=== PATIENT | female | born 1940 | race Caucasian/White ===

== ENCOUNTER 2020-09-16 08:15 | Outpatient (REF) | payer MEDICARE, OTHER, SELFPAY ==
--- NOTE | 2020-09-16 11:52 | MHC.AU.AHA ---
Adult Audiological Evaluation Date of Visit: 09/16/20 Reason for Appointment: Audiological evaluation due to concerns for decreased hearing. Ms. Greene has a known bilateral sensorineural hearing loss and uses hearing aids bilaterally. She denies any significant changes to her medical history but notes that her cognitive abilities are declining. [place] [facility] [place] mild sloping to moderately severe sensorineural hearing loss bilaterally. 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 Removed w/curette and alligator forceps. Left Ear: Unremarkable Tympanometry: Tympanometry performed due to: To determine if cerumen blockage is fully occluding canal(s) Right Ear: Normal Middle Ear System (Type A) Left Ear: Non-compliant Middle Ear System (Type B) Hearing Evaluation: Transducer(s) Used: Insert Earphones, Bone Conduction Method: Conventional Audiometry Stimuli Used: Pure Tones Right Ear: Description of Hearing: Mild sloping to moderately severe sensorineural hearing loss from 250-8000 Hz. Left Ear: Description of Hearing: Mild sloping to moderately severe sensorineural hearing loss from 250-8000 Hz. Thresholds are 10-15 dBHL worse than the right ear at 250-500 Hz. Speech Recognition Threshold (SRT): Method Used: Monitored Live Voice Stimuli Used: Spondee Words Right Ear: 35 dBHL Left Ear: 40 dBHL Word Discrimination: Method: Recorded Lists Word Lists Used: NU-6 Right Ear: 92% at 75 dBHL Left Ear: 96% at 80 dBHL Comparison: Compared to the most recent evaluation: Hearing is stable. Recommendations: Audiological re-evaluation in one year. Hearing aid maintenance performed today. Diagnosis: Primary Diagnosis: H90.3 Bilateral Sensorineural Hearing Loss Secondary Diagnosis: H61.21 Impacted Cerumen, Right Ear Services Performed: Comprehensive Audiological Evaluation (CPT 13250) Tympanometry (CPT 93666) Signature: Provider: Kareem Olguin, CCC-A
== END 2020-09-16 08:16 | disposition home or self-care (01) ==
LOC: HO.SH 08:15
PROVIDERS: Visit Provider Family Medicine
DX: H90.3 Sensorineural hearing loss, bilateral (principal); H61.21 Impacted cerumen, right ear
CPT/HCPCS: 92557; 92567

== ENCOUNTER 2020-09-16 09:17 | Outpatient (REF) | payer SELFPAY | END 2020-09-16 09:18 | disposition home or self-care (01) | LOC: HO.HAP 09:17 | PROVIDERS: Visit Provider Family Medicine | DX: Z46.1 Encounter for fitting and adjustment of hearing aid (principal); H90.3 Sensorineural hearing loss, bilateral | CPT/HCPCS: 92700 ==

== ENCOUNTER 2022-01-27 08:59 | Outpatient (REF) | payer MEDICARE, OTHER, SELFPAY ==
--- NOTE | 2022-02-09 14:25 | MHC.AU.AHA ---
Adult Audiological Evaluation Date of Visit: 01/27/22 Torpedo Shooter Used: Not Applicable Reason for Appointment: Audiologic re-evaluation to determine possible change in hearing ability. Cindy has a history of progressive bilateral hearing loss, left ear middle ear dysfunction, and wears binaural hearing aids. Previous Hearing Test Results: 09/16/2020 [facility] Right Ear - Mild sloping to moderately-severe sensorineural hearing loss Left Ear - Moderate to moderately-severe sensorineural hearing loss Medical History: Medical History: Thyroid Disease, Memory/Cognitive decline Medication List: List is not available for review today. 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 Left Ear: Unremarkable Tympanometry: Tympanometry performed due to: To assess integrity of the middle ear system Right Ear: Normal Middle Ear System (Type A) Left Ear: Non-compliant Middle Ear System (Type B) Hearing Evaluation: Transducer(s) Used: Insert Earphones Method: Conventional Audiometry Stimuli Used: Pure Tones Right Ear: Description of Hearing: Mild sloping to moderately-severe sensorineural hearing loss Left Ear: Description of Hearing: Moderate to moderately-severe sensorineural hearing loss Speech Recognition Threshold (SRT): Method Used: Monitored Live Voice Stimuli Used: Spondee Words Right Ear: 35 dB HL Left Ear: 40 dB HL Word Discrimination: Method: Recorded Lists Word Lists Used: NU-6 Right Ear: 100% at 75 dB HL Left Ear: 100% at 80 dB HL Comparison: Compared to the most recent evaluation: Thresholds have decreased bilaterally. Recommendations: Hearing aid maintenance performed today. Unable to reprogram hearing aids to today's test results due to equipment problems. Scheduled an appointment in February to reprogram aids. Audiological re-evaluation in one year. Diagnosis: Primary Diagnosis: H90.3 Bilateral Sensorineural Hearing Loss Services Performed: Pure Tone- Air (CPT 97332) Speech Audiometry Threshold, with Speech Recognition (CPT 97432) Tympanometry (CPT 89696) Signature: Provider: Kareem Becker, CCC-A
== END 2022-01-27 09:00 | disposition home or self-care (01) ==
LOC: HO.SH 08:59
PROVIDERS: Visit Provider Family Medicine
DX: Z01.118 Encounter for examination of ears and hearing with other abnormal findings (principal); H90.3 Sensorineural hearing loss, bilateral
CPT/HCPCS: 92552; 92556; 92567

== ENCOUNTER 2022-01-27 10:10 | Outpatient (REF) | payer SELFPAY | END 2022-01-27 10:11 | disposition home or self-care (01) | LOC: HO.HAP 10:10 | PROVIDERS: Visit Provider Internal Medicine Rheumatology | DX: Z46.1 Encounter for fitting and adjustment of hearing aid (principal); H90.3 Sensorineural hearing loss, bilateral; H69.91 Unspecified Eustachian tube disorder, right ear | CPT/HCPCS: 92700 ==

== ENCOUNTER 2022-03-07 08:53 | Outpatient (REF) | payer SELFPAY | END 2022-03-07 08:54 | disposition home or self-care (01) | LOC: HO.HAP 08:53 | PROVIDERS: Visit Provider Anesthesiology | DX: Z13.89 Encounter for screening for other disorder (principal) ==

== ENCOUNTER 2022-07-26 12:02 | Outpatient (REF) | payer SELFPAY ==
--- NOTE | 2022-07-26 13:22 | MHC.AU.HA3 ---
Hearing Instrument Follow-Up- Binaural Date of Visit: 07/26/22 Right Ear: Make, Model, Color, Serial Number: [employer] [place] Pro slim tube BTE SN: [id number] Color: Silver Buckle Inspector Repair Warranty: 04/12/2017 Buckle Inspector Loss and Damage Warranty: 04/12/2017 Battery Size: 312 Geophysical Engineer/Slim Tube: #2 slim tube Earmold/Dome/CShell/SlimTip:[employer] Skeleton slim tube mold Dispensed By: [facility] Date of Fittin03/20/2014 Left Ear: Make, Model, Color, Serial Number: [employer] Deb Pro slim tube BTE SN: [id number] Color: Silver Buckle Inspector Repair Warranty: 04/12/2017 Buckle Inspector Loss and Damage Warranty: 04/12/2017 Battery Size: 312 Geophysical Engineer/Slim Tube: #2 slim tube Earmold/Dome/CShell/SlimTip: 6 mm open dome Dispensed By: [facility] Date of Fittin03/20/2014 Follow-Up Summary: Left hearing aid dropped off missing entire slim tube. Rust noted in battery door. Cleaned hearing aid, battery door, and contacts. Vacuumed microphones and ran hearing aid through dehumidifier. Replaced tubing and dome. A listening check demonstrated hearing aid is in good working order. Recommendations: Hearing instrument maintenance in 6 months, or sooner if needed. Diagnosis Code(s): Primary Diagnosis: H90.3 Bilateral Sensorineural Hearing Loss Signature: Provider: Milagro Salter, [facility]
== END 2022-07-26 12:03 | disposition home or self-care (01) ==
LOC: HO.HAP 12:02
PROVIDERS: Visit Provider Internal Medicine Rheumatology
DX: Z13.89 Encounter for screening for other disorder (principal)

== ENCOUNTER 2022-07-27 11:17 | Outpatient (REF) | payer SELFPAY | END 2022-07-27 11:18 | disposition home or self-care (01) | LOC: HO.HAP 11:17 | PROVIDERS: Visit Provider Internal Medicine Rheumatology | DX: Z46.1 Encounter for fitting and adjustment of hearing aid (principal); H90.3 Sensorineural hearing loss, bilateral; H69.91 Unspecified Eustachian tube disorder, right ear | CPT/HCPCS: 92592 ==

== ENCOUNTER 2023-05-01 14:57 | Outpatient (REF) | payer SELFPAY | END 2023-05-01 14:58 | disposition home or self-care (01) | LOC: HO.HAP 14:57 | PROVIDERS: Visit Provider Internal Medicine Rheumatology | DX: Z13.89 Encounter for screening for other disorder (principal) ==

== ENCOUNTER 2023-05-03 10:31 | Outpatient (REF) | payer SELFPAY | END 2023-05-03 10:32 | disposition home or self-care (01) | LOC: HO.HAP 10:31 | PROVIDERS: Visit Provider Internal Medicine Rheumatology | DX: Z46.1 Encounter for fitting and adjustment of hearing aid (principal); H90.3 Sensorineural hearing loss, bilateral | CPT/HCPCS: 92593 ==

== ENCOUNTER 2023-06-22 08:22 | Outpatient (REF) | payer MEDICARE, OTHER, SELFPAY | END 2023-06-22 08:23 | disposition home or self-care (01) | LOC: HO.SH 08:22 | PROVIDERS: Visit Provider Family Medicine | DX: Z01.118 Encounter for examination of ears and hearing with other abnormal findings (principal); H90.3 Sensorineural hearing loss, bilateral | CPT/HCPCS: 92557; 92567 ==

== ENCOUNTER 2024-07-09 08:55 | Outpatient (REF) | payer MEDICARE, OTHER, SELFPAY | END 2024-07-09 08:56 | disposition home or self-care (01) | LOC: HO.SH 08:55 | PROVIDERS: Visit Provider Family Medicine | DX: Z01.118 Encounter for examination of ears and hearing with other abnormal findings (principal); H90.3 Sensorineural hearing loss, bilateral | CPT/HCPCS: 92557; 92567 ==

== ENCOUNTER 2024-07-09 09:49 | Outpatient (REF) | payer SELFPAY ==
--- OUTSIDE RECORDS SUMMARY | 2024-07-09 10:39 | XMS_ITS ---
Author Organization [facility] Address [address] [place] [address] Care Team Providers Care Container Repairer Name Role Phone Charbel Coppola Primary Care Provider Man Lowe Unavailable [phone] REASON FOR VISIT Painful thick toenails which are aggrevated by shoes and causes difficulty standing/walking Encounters Encounter Location Date Provider Diagnosis [facility] [address] [place] [address] 12/26/2023 Man York Tinea unguium B35.1 ; Pain in right toe(s) M79.674 ; Pain in left toe(s) M79.675 ; Other viral warts B07.8 ; Pain in left foot M79.672 and Pain in right foot M79.671 Assessments Encounter Date Diagnosis (ICD Code) Assessment Notes Treatment Notes Treatment Clinical Notes Section Notes 12/26/2023 Tinea unguium (ICD-10 - B35.1) 12/26/2023 Pain in right toe(s) (ICD-10 - M79.674) 12/26/2023 Pain in left toe(s) (ICD-10 - M79.675) 12/26/2023 Other viral warts (ICD-10 - B07.8) 12/26/2023 Pain in left foot (ICD-10 - M79.672) 12/26/2023 Pain in right foot (ICD-10 - M79.671) Plan Of Treatment Next Appt Details Follow Up: 4 Months, Reason: Procedure Notes * Category Sub-Category Detail Notes Wart Treatment Procedure Verrucae(s) were debrided to pin-point bleeding margins with sterile surgical blade (59821), silver nitrate chemocautery applied Debride Nail 6-10 Nail debridement Nail debridem ent performed extensively to reduce/remove overall nail length and girth, subungual debris, and necrotic tissue, by manual and electrical means with use of a nail nipper and/or dremel, to more viable healthy nail plate or bed tissue 6-10. Silver nitrate used for any petechial bleeding as necessary. Patient chooses, no pharmaceutical tx (24024) Debride Nails 1-5 Procedure: Nail debrideme nt performed extensively to reduce/remove overall nail length and girth, subungual debris, and necrotic tissue, by manual and electrical means by use of a nail nipper and/or dremel, to more viable healthy nail plate or bed tissue 1-5. Silver nitrate used for any petechial bleeding as necessary. Patient chooses, no pharmaceutical tx (23211) Progress Notes * Cindy CARVER KDOB:[birth year] (83 yo F)Acc No.[id number]:12/26/2023 Progress Note Patient:?MEHULCindy TOWNSEND Ba Provider:?Man York DPM :1940???Age:83 Y???Sex:Female D ate:12/26/2023 Address:[address] [place], [place] [id number] Pcp:Charbel Coppola Subjective: * Chief Complaints: * ???1. Painful thick toenails which are aggrevated by shoes and causes difficulty standing/walking. * HPI: ???Painful Nails:?Pt States Last PCP Visit:?Date:?03/19/2023 * ROS:?General/Constitutional:?Nausea?denies.?Vomiting?denies.?Hunger Thirst?denies.?Loss appetite?denies.?Chills?denies.?Fatigue?denies.?Fever?denies.?Night Sweats?denies.?Unexplained weight loss?denies.?Unexplained weight gain?denies.?HEENTM:?Dentures?denies.?Dizziness?denies.?Glasses/contacts?admits.?Retinopathy?de nies.?Blurred/double vision?denies.?TMJ?denies.?Discharge/drainage?denies.?Implants?denies.?Sore throat?denies.?Dental implants?denies.?Hard of hearing ?denies.?Difficulty chewing/swallowing/speaking?denies.?Nose bleeds?denies.?Sore mouth?denies.?Respiratory:?On Oxygen?denies.?Pneumonia/pleurisy?denies.?Bronchitis?denies.?Emphysema?denies.?C oughing?denies.?Cough blood?denies.?Shortness of breath?denies.?Wheezing?denies.?Cardiovascular:?Pacemaker?denies.?MVP?denies.?WPW?denies.?CHF?denies.?Heart attack?denies.?Septal defect?denies.?Rapid beat?denies.?Chest pain ?denies.?Atrial Fib.?denies.?Murmur/Palpitations?denies.?Gastrointestinal:?Hemorrhoids?denies.?Stomach/Abdominal pain?denies.?Dark blood stool?denies.?Irritable bowel ?denies.?Constipation?denies.?Diarrhea?denies.?Hematology:?Swelling?denies.?Clots?denies.?Varicose Veins?denies.?Bruising?denies.?Bleeding problem?denies.?Genitourinary:?Blood urine?denies.?Frequent/Painfu/urination/bladder control?denies.?Kidney stones?denies.?Infection (UTI)?denies.?Nephropathy?denies.?sex trans dis (STD)?denies.?Prostate?denies.?Musculoskeletal:?Hammertoes?denies.?Bunions?denies.?Back Pain?denies.?Muscle Cramps/ Resting?denies.?Muscle cramps / walking?denies.?Generalized aches and pains?denies.?Weakness?denies.?Integ.:?Agy?denies.?Scars?denies.?Corns/calluses?denies.?Ingrown nails?denies.?Painful nails?denies.?Open Sores?denies.?Rashes?denies.?Neurologic:?Difficulty sleeping?denies.?Brain disorder?denies.?Numbness?denies.?Balance trouble?denies.?Confusion?denies.?Fainting/blackouts?denies.?Tingling?denies.?Tr emors?denies.? * Medical History:? Objective: * Vitals:? * Examination: ???Nails: ?NAILS are:? Elongated, overgrown, dystrophic, lytic, greater than 3mm thick, discolored and friable with crumbly malodorous subungual debris, with pain on palpation, 1-5 Right foot, TA, T2.? Assessment: * Assessment: 1.?Tinea unguium - B35.1 (Pr imary)???2.?Pain in right toe(s) - M79.674???3.?Pain in left toe(s) - M79.675???4.?Other viral warts - B07.8???5.?Pain in left foot - M79.672???6.?Pain in right foot - M79.671??? Plan: * Treatment: * Procedures:?Debride Nails 1-5:?Procedure:?Nail debridement performed extensively to reduce/remove overall nail length and girth, subungual debris, and necrotic tissue, by manual and electrical means by use of a nail nipper and/or dremel, to more viable healthy nail plate or bed tissue 1-5. Silver nitrate used for any petechial bleeding as necessary. Patient chooses, no pharmaceutical tx (93346).?Debride Nail 6-10:?Nail debridement?Nail debridement performed extensively to reduce/remove overall nail length and girth, subungual debris, and necrotic tissue, by manual and electrical means with use of a nail nipper and/or dremel, to more viable healthy nail plate or bed tissue 6-10. Silver nitrate used for any petechial bleeding as necessary. Patient chooses, no pharmaceutical tx (73438).?Wart Treatment:?Procedure?Verrucae(s) were debrided to pin-point bleeding margins with sterile surgical blade (51481), silver nitrate chemocautery applied.? * Procedure Codes:?36929 DEBRI DE NAIL, 6 OR MORE, Modifiers: XS * Follow Up:?4 Months * Images: * The named appointment provid er may or may not be the originator of this progress note, and it is not deemed complete until electronically signed by the appointment provider. Sign off status: Pending * Provider:?Man York DPM Date:? 024 Generated for Ale kelly/Alex/Christyransmitting on:?07/09/2024 10:38 AM EST History and Physical Notes * HPI (History of Present Illness) Category Sub-Category Detail Notes Category Not es Painful Nails Pt States Last PCP Visit: Date:: 03/19/2023 Examination Category Sub-Category Detail Notes Category Not es Nails NAILS are: Elongated, overg rown, dystrophic, lytic, greater than 3mm thick, discolored and friable with crumbly malodorous subungual debris, with pain on palpation, 1-5 Right foot, TA, T2
--- OUTSIDE RECORDS SUMMARY | 2024-07-09 10:39 | XMS_ITS ---
Author Organization [facility] Address [address] [place] [address] Care Team Providers Care Senior Business Development Manager Name Role Phone Charbel Coppola Primary Care Provider Man Lowe [phone] REASON FOR VISIT cx appt 12/26/23 Encounters Encounter Location Date Provider Diagnosis [facility] [address] [place] [address] 12/25/2023 Man York Plan Of Treatment No Information Progress Notes * MEHUL, Cindy KDOB:[birth year] (83 yo F)Acc No.[id number]:12/25/2023 Patient:?Mehul Cindy Cosme :1940???Age:83 Y???Sex:Female Address:[address] [place] [id number] * true * Date:? Generated for Printi leticia/Alex/eTransmitting on:?07/09/2024 10:38 AM EST
--- OUTSIDE RECORDS SUMMARY | 2024-07-09 10:39 | XMS_ITS ---
Author Organization [facility] Address [address] [place] [address] Care Team Providers [employer] Consultant Name Role Phone Charbel Coppola Primary Care Provider Man Lowe Unavailable [phone] Allergies Allergen (clinical drug ingredient) Drug/Non Drug Allergy documented on EMR Reaction Allergy Type Onset Date Status adhesive tape Unknown Drug Allergy Act hood latex Unknown Drug Allergy Active shrimp allergenic extract Shrimp (Diagnostic) Unknown Drug Allergy Active Iodine Unknown Drug Allergy Active Shellfish (FN) Shellfish-derived Products Unknown Drug Allergy Active Substance with sulfonamide structure and antibacterial mechanism of action (substance) Sulfa Antibiotics Unknown Drug Allergy Active REASON FOR VISIT Painful thick toenails which are aggrevated by shoes and causes difficulty standing/walking Medications Medication SIG (Take, Route, Frequency, Duration) Notes Start Date End Date Status Aspirin 81 MG 1 tablet Orally Once a day for 30 day(s) Not-Taking Fluticasone Propionate 50 MCG/ACT 2 sprays Nasally Once a day for 30 day(s) Not-Taking Levothyroxine Sodium 25 MCG 1 tablet every morning on an empty stomach Orally Once a day for 30 day(s) Not-Taking Escitalopram Oxalate 5 MG 1 tablet Orall y Once a day Active Loratadine 10 MG 1 tablet Orally Once a day for 30 day(s) Not-Taking Social History Tobacco Use: Social History Observation Description Date Details (start date - stop date) Never Smoker NA - NA Tobacco Use/Smoking Question Answer Notes Are you a: nonsmoker Additional Findings: Tobacco Non-User Current no n-smoker Alcohol Screen Question Answer Notes Did you have a drink containing alcohol in the p ast year? Yes Points 0 Interpretation Negative Tobacco use other than smoking: Question Answer Notes Are you an other tobacco user? No Vital Signs Height 5 ft 1 in in 08/23/2023 Weight 114 lbs 08/23/2023 BMI 21.54 kg/m2 08/23/2023 Blood pressure systolic 120 mm Hg 08/23/19 24 Blood pressure diastolic 65 mm Hg 024 Encounters Encounter Location Date Provider Diagnosis [facility] [place] [address] [place] [address] 08/23/2023 Man York Tinea unguium B35.1 ; Pain in right toe(s) M79.674 ; Pain in left toe(s) M79.675 ; Other viral warts B07.8 ; Pain in left foot M79.672 and Pain in right foot M79.671 Assessments Encounter Date Diagnosis (ICD Code) Assessment Notes Treatment Notes Treatment Clinical Notes Section Notes 08/23/2023 Tinea unguium (ICD-10 - B35.1) 08/23/2023 Pain in right toe(s) (ICD-10 - M79.674) 08/23/2023 Pain in left toe(s) (ICD-10 - M79.675) 08/23/2023 Other viral warts (ICD-10 - B07.8) 08/23/2023 Pain in left foot (ICD-10 - M79.672) 08/23/2023 Pain in right foot (ICD-10 - M79.671) Plan Of Treatment Next Appt Details Follow Up: 4 Months, Reason: Procedure Notes * Category Sub-Category Detail Notes Wart Treatment Procedure Verrucae(s) were debrided to pin-point bleeding margins with sterile surgical blade (40589), silver nitrate chemocautery applied Debride Nail 6-10 Nail debridement Nail debridem ent performed extensively to reduce/remove overall nail length and girth, subungual debris, and necrotic tissue, by manual and electrical means with use of a nail nipper and/or dremel, to more viable healthy nail plate or bed tissue 6-10. Silver nitrate used for any petechial bleeding as necessary. Patient chooses, no pharmaceutical tx (38426) Debride Nails 1-5 Procedure: Nail debrideme nt performed extensively to reduce/remove overall nail length and girth, subungual debris, and necrotic tissue, by manual and electrical means by use of a nail nipper and/or dremel, to more viable healthy nail plate or bed tissue 1-5. Silver nitrate used for any petechial bleeding as necessary. Patient chooses, no pharmaceutical tx (02896) Progress Notes * Cindy CARVER KDOB:[birth year] (83 yo F)Acc No.[id number]:08/23/2023 Progress Note Patient:?Cindy Carver Provider:?Man York DPM :1940???Age:83 Y???Sex:Female D ate:08/23/2023 Address:[address] [place], [place] [id number] Pcp:Charbel Coppola Subjective: * Chief Complaints: * ???Painful thick toenails wh ich are aggrevated by shoes and causes difficulty standing/walking * HPI: ???Painful Nails:?Pt States Last PCP Visit:?Date:?03/19/2023 * ROS:?General/Constitutional:?Nausea?denies.?Vomiting?denies.?Hunger Thirst?denies.?Loss appetite?denies.?Chills?denies.?Fatigue?denies.?Fever?denies.?Night Sweats?denies.?Unexplained weight loss?denies.?Unexplained weight gain?denies.?HEENTM:?Dentures?denies.?Dizziness?denies.?Glasses/contacts?admits.?Retinopathy?de nies.?Blurred/double vision?denies.?TMJ?denies.?Discharge/drainage?denies.?Implants?denies.?Sore throat?denies.?Dental implants?denies.?Hard of hearing ?denies.?Difficulty chewing/swallowing/speaking?denies.?Nose bleeds?denies.?Sore mouth?denies.?Respiratory:?On Oxygen?denies.?Pneumonia/pleurisy?denies.?Bronchitis?denies.?Emphysema?denies.?C oughing?denies.?Cough blood?denies.?Shortness of breath?denies.?Wheezing?denies.?Cardiovascular:?Pacemaker?denies.?MVP?denies.?WPW?denies.?CHF?denies.?Heart attack?denies.?Septal defect?denies.?Rapid beat?denies.?Chest pain ?denies.?Atrial Fib.?denies.?Murmur/Palpitations?denies.?Gastrointestinal:?Hemorrhoids?denies.?Stomach/Abdominal pain?denies.?Dark blood stool?denies.?Irritable bowel ?denies.?Constipation?denies.?Diarrhea?denies.?Hematology:?Swelling?denies.?Clots?denies.?Varicose Veins?denies.?Bruising?denies.?Bleeding problem?denies.?Genitourinary:?Blood urine?denies.?Frequent/Painfu/urination/bladder control?denies.?Kidney stones?denies.?Infection (UTI)?denies.?Nephropathy?denies.?sex trans dis (STD)?denies.?Prostate?denies.?Musculoskeletal:?Hammertoes?denies.?Bunions?denies.?Back Pain?denies.?Muscle Cramps/ Resting?denies.?Muscle cramps / walking?denies.?Generalized aches and pains?denies.?Weakness?denies.?Integ.:?Gay?denies.?Scars?denies.?Corns/calluses?denies.?Ingrown nails?denies.?Painful nails?denies.?Open Sores?denies.?Rashes?denies.?Neurologic:?Difficulty sleeping?denies.?Brain disorder?denies.?Numbness?denies.?Balance trouble?denies.?Confusion?denies.?Fainting/blackouts?denies.?Tingling?denies.?Tr emors?denies.? * Medical History:? * Surgical History:? s ection 1979cholecystectomy 1999tubal ligation 1979uterine sugery 1976 * Hospitalization/Major Diagno stic Procedure:?Denies Past Hospitalization * Family History:?Mother: dece ased, cancer, foot problems, stroke.?Father: , cancer, high blood pressure.? * Social History:?Tobacco Use:?Tobacco Use/Smoking?Are you a:?nonsmoker ?Additional Findings: Tobacco Non-User?Current non-smoker ?Tobacco use other than smoking?Are you an other tobacco user??No ???Drugs/Alcohol:?Drugs?Have you used drugs other than those for medical reasons in the past 12 months??No ?Alcohol Screen?Did you have a drink containing alcohol in the past year??Yes ?Points?0 ?Interpretation?Negative ???Miscellaneous:?Caffeine: yes, 3-5 cups per day, 1-2 cups per day. ?Children: yes, 1. ?Exercise: occasional, weightlifting. ?Marital status: . 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 * Medications:?TakingEscitalop tawny Oxalate 5 MG Tablet 1 tablet Orally Once a dayTaking Escitalopram Oxalate 5 MG Tablet 1 tablet Orally Once a dayNot- Taking/PRNLoratadine 10 MG Tablet 1 tablet Orally Once a dayFluticasone Propionate 50 MCG/ACT Suspension 2 sprays Nasally Once a dayLevothyroxine Sodium 25 MCG Tablet 1 tablet every morning on an empty stomach Orally Once a dayAspirin 81 MG Tablet Chewable 1 tablet Orally Once a dayMedication List reviewed and reconciled with the patientNot-Taking/PRN Loratadine 10 MG Tablet 1 tablet Orally Once a dayNot-Taking/PRN Fluticasone Propionate 50 MCG/ACT Suspension 2 sprays Nasally Once a dayNot-Taking/PRN Levothyroxine Sodium 25 MCG Tablet 1 tablet every morning on an empty stomach Orally Once a dayNot-Taking/PRN Aspirin 81 MG Tablet Chewable 1 tablet Orally Once a dayMedication List reviewed and reconciled with the patient * Allergies:?adhesive tapelate xIodineShellfish-derived ProductsSulfa AntibioticsShrimp (Diagnostic)yes[Allergies Verified] Objective: * Vitals:?Ht: 5 ft 1 in, Wt:11 4, BMI:21.54, Shoe size:7.5, BP:120/65 mm Hg. * Examination: ???Nails: ?NAILS are:? Elongated, overgrown, dystrophic, lytic, greater than 3mm thick, discolored and friable with crumbly malodorous subungual debris, with pain on palpation, 1-5 Right foot, TA, T2.? Assessment: * Assessment: 1.?Tinea unguium - B35.1 (Pr imary)?2.?Pain in right toe(s) - M79.674?3.?Pain in left toe(s) - M79.675?4.?Other viral warts - B07.8?5.?Pain in left foot - M79.672?6.?Pain in right foot - M79.671? Plan: * Treatment: * Procedures:?Debride Nails 1-5:?Procedure:?Nail debridement performed extensively to reduce/remove overall nail length and girth, subungual debris, and necrotic tissue, by manual and electrical means by use of a nail nipper and/or dremel, to more viable healthy nail plate or bed tissue 1-5. Silver nitrate used for any petechial bleeding as necessary. Patient chooses, no pharmaceutical tx (13982).?Debride Nail 6-10:?Nail debridement?Nail debridement performed extensively to reduce/remove overall nail length and girth, subungual debris, and necrotic tissue, by manual and electrical means with use of a nail nipper and/or dremel, to more viable healthy nail plate or bed tissue 6-10. Silver nitrate used for any petechial bleeding as necessary. Patient chooses, no pharmaceutical tx (65883).?Wart Treatment:?Procedure?Verrucae(s) were debrided to pin-point bleeding margins with sterile surgical blade (03533), silver nitrate chemocautery applied.? * Procedure Codes:?42513 DEBRI DE NAIL, 6 OR MORE, Modifiers: XS * Follow Up:?4 Months * Images: * Sign off status: Completed true * Provider:?Man York DPM Date:? 024 Generated for Ale kelly/Alex/eTransmitting on:?07/09/2024 10:38 AM EST History and Physical [...]
--- OUTSIDE RECORDS SUMMARY | 2024-07-09 10:39 | XMS_ITS | Patient Health Record ---
Author Organization [facility] Address [address] [place] [address] Care Team Providers [employer] Legal Assistant Name Role Phone Charbel Coppola Primary Care Provider Man Lowe Unavailable [phone] Allergies Allergen (clinical drug ingredient) Drug/Non Drug [...] (substance) Sulfa Antibiotics Unknown Drug Allergy Active Reason For Referral No Information Medications Medication SIG (Take, Route, Frequency, Duration) [...] Once a day for 30 day(s) Not-Taking Immunizations Vaccine Route Administration Date Status Comme nts COVID-19 Pfizer BioNTech Vaccine Unknown 08/13/2020 Administered 07/23/2020 Social History Tobacco Use: Social History Observation [...] Are you an other tobacco user? No Problems Problem Type SNOMED Code ICD Code Onset Dates Problem Status W/U Status Risk Notes Problem Acquired hallux valgus (74046108) Hallux valgus (acquired), left foot (M20.12) Active confirmed Problem Acquired hallux valgus (83428638) Hallux valgus (acquired), right foot (M20.11) Active confirmed Problem 611211172 Hammer toe of right foot (M20.41) Active confirmed Problem 013280987 Hammer toe of left foot (M20.42) Active confirmed Vital Signs Blood pressure diastolic 65 mm Hg 08/23/2023 Height 5 ft 1 in in 08/23/2023 Blood pressure systolic 120 mm Hg 08/23/2023 Weight 114 lbs 08/23/2023 BMI 21.54 kg/m2 08/23/2023 Encounters Encounter Location Date Provider Diagnosis [facility] [address] [address] 08/23/2023 Man York Tinea unguium B35.1 ; Pain in right toe(s) M79.674 ; Pain in left toe(s) M79.675 ; Other viral warts B07.8 ; Pain in left foot M79.672 and Pain in right foot M79.[address] [facility] [address] 12/25/2023 Man York Assessments Encounter Date Diagnosis (ICD Code) Assessment Notes Treatment Notes Treatment Clinical Notes Section Notes 08/23/2023 Tinea unguium (ICD-10 - B35.1) 08/23/2023 Pain in right toe(s) (ICD-10 - M79.674) 08/23/2023 Pain in left toe(s) (ICD-10 - M79.675) 08/23/2023 Other viral warts (ICD-10 - B07.8) 08/23/2023 Pain in left foot (ICD-10 - M79.672) 08/23/2023 Pain in right foot (ICD-10 - M79.671) Plan Of Treatment Pending Test Test Name Order Date X ray : Foot, left 3V 05/13/2018 X ray : Foot, right 3V 05/13/2018 31770-Tepq Destruction, -01/17/2012 68599-Ndsw Destruction, 07-0105/30/2012 27191-Frqs Destruction, 07-0105/13/2018 Insurance Providers Payer Name Payer Address Payer Phone Subscriber Number Group Number Insured Name Patient Relationship to Insured Coverage Start Date Coverage End Date Medicare National [employer] [address] [place] [address] [id number] Cindy Greene Self - patient is the insured [employer] ([employer]) [address] [place] [address] [id number] Cindy Greene Self - patient is the insured Medical (General) History Medical History History ICD Code mumps measles chicken pox thyroid disorder back, hip, knee pain Surgical History Surgery Date(Month/Year) section 1978 cholecystectomy 1998 tubal ligation 1978 uterine sugery 1976
--- NOTE | 2024-07-09 13:25 | MHC.AU.HA3 ---
Hearing Instrument Follow-Up- Binaural Date of Visit: 07/09/24 Right Ear: Make, Model, Color, Serial Number: Oticon [place] Pro slim tube BTE SN: [id number] Color: Silver Manager Software Repair Warranty: 04/12/2017 Manager Software Loss and Damage Warranty: 04/12/2017 Battery Size: 312 Budget Technician/Slim Tube: #2 slim tube Earmold/Dome/CShell/SlimTip:Oticon Skeleton slim tube mold Dispensed By: [facility] Date of Fittin03/20/2014 Left Ear: Make, Model, Color, Serial Number: Oticon Deb Pro slim tube BTE SN: [id number] Color: Silver Manager Software Repair Warranty: 04/12/2017 Manager Software Loss and Damage Warranty: 04/12/2017 Battery Size: 312 Budget Technician/Slim Tube: #2 slim tube Earmold/Dome/CShell/SlimTip: 6 mm open dome Dispensed By: [facility] Date of Fittin03/20/2014 Follow-Up Summary: Seen for evaluation. Reports hearing aids are working well. Last [employer] maintenance occurred over 1 year ago. Cleaned aids, cleaned right earmold, replaced slim tubes, replaced left dome. Listening check positive. Briefly discussed new amplification. Cindy reports these hearing aids are still working fine for her. Recommendations: Recommendations: Hearing instrument follow-up or maintenance as needed. 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
== END 2024-07-09 09:50 | disposition home or self-care (01) ==
LOC: HO.HAP 09:49
PROVIDERS: Visit Provider Internal Medicine Rheumatology
DX: Z46.1 Encounter for fitting and adjustment of hearing aid (principal); H90.3 Sensorineural hearing loss, bilateral
CPT/HCPCS: 92593